=== PATIENT | male | born 1960 | race Caucasian/White ===

== ENCOUNTER 2020-10-02 16:53 | Emergency (ER) | payer OTHER ==
[~2020-10-02] VITALS: Ht 180.3 cm; Wt 88.5 kg
[2020-10-02] MEDS ORDERED: SERTRALINE HCL100 MG PO (17:04)
[2020-10-02] MEDS ORDERED: NORCO 5-325 TA1 EAC2 PO (17:40)
[2020-10-02 18:26] VITALS: BP 123/69
== END 2020-10-02 18:26 | disposition home or self-care (01) ==
LOC: M.ERS 16:53
DX: S43.005A Unspecified dislocation of left shoulder joint, initial encounter (principal); Z98.890 Other specified postprocedural states; Z79.899 Other long term (current) drug therapy; W11.XXXA Fall on and from ladder, initial encounter; Y93.89 Activity, other specified; Y92.89 Other specified places as the place of occurrence of the external cause; Y99.8 Other external cause status